=== PATIENT | male | born 1980 | race Two or more races ===

== ENCOUNTER 2016-12-05 11:58 | Emergency (ER) | payer SELFPAY ==
[~2016-12-05] VITALS: Ht 165.1 cm; Wt 70.3 kg
--- NOTE | 2016-12-05 12:08 | NUR ---
PT BIB SELF C/O PUNCTURE WOUND TO R LOWER ARM "FELL OUT OF A TREE ONTO A FENCE", NOTED WITH EXIT AND ENTRY WOUNDS OPEN TO AIR AND SMALL AMOUNT OF BLEEDING. MODERATELY SWOLLEN. DISTAL CMS INTACT. REPORTS PAIN IN R LOWER ARM; NO OTHER COMPLAINTS. IN ER BED 10.
[2016-12-05] MEDS ORDERED: HYDROCODONE/APAP 5/325MG 1 EACH TABLET ONE (12:16)
[2016-12-05] MEDS ORDERED: CEPHALEXIN MONOHYDRATE 500 MG CAPSULE PO ONE ×2 (12:17→12:30)
[2016-12-05] MEDS ORDERED: TDAP [DIPH/PERTUSSIS/TET] 0.5 ML VIAL IM ONE ×2 (12:17→12:30)
[2016-12-05] MEDS ORDERED: HYDROCODONE/APAP 5/325MG 1 EACH TABLET PO ONE (12:30)
--- NOTE | 2016-12-05 12:46 | NUR ---
Patient discharged to home in stable condition. Written and verbal after care instructions given. Patient verbalizes understanding of instruction. DRESSING INTACT. AMBULATORY WITH STEADY GAIT. Addendum: 12/05/16 at 1259 by [facility] CORRECTION: LONG ARM SPLINT IN PLACE
[2016-12-05 12:59] VITALS: BP 151/80
== END 2016-12-05 13:00 | disposition home or self-care (01) ==
LOC: ER 12:00
DX: S51.831A Puncture wound without foreign body of right forearm, initial encounter (principal); W14.XXXA Fall from tree, initial encounter; Y93.89 Activity, other specified; Y92.89 Other specified places as the place of occurrence of the external cause; Y99.0 Civilian activity done for income or pay
CPT/HCPCS: 29105; 73090; 90471; 90715; 99284; A4606; A6402 ×2; Z7610